=== PATIENT | female | born 1970 | race Caucasian/White ===

== ENCOUNTER → 2017-02-21 | Outpatient (REF) | payer OTHER ==
[2017-02-21 19:28] LABS: LUTEINIZING HORMONE 3.3 mIU/mL; PROGESTERONE 1.3 NG/ML
[2017-02-21 19:29] LABS: ESTRADIOL 49.3 PG/ML; FOLLICLE STIMULATING HORMONE 6.3 mIU/mL
[2017-02-26 00:07] LABS: ESTRONE SERUM 61 pg/mL (.)
== END ==
LOC: M LAB REF 17:03
PROVIDERS: ATTEND Obstetrics & Gynecology
DX: N92.0 Excessive and frequent menstruation with regular cycle (principal)

== ENCOUNTER → 2017-03-27 | Outpatient (CLI) | payer BC, OTHER ==
[~2017-03-27] MED LIST: LEVO100T5 PO; MELO15TA4 PO; MOTR200T44 PO; MULT1TAB10 PO; OMEP20CA3; PERC5TAB12 PO; VENTAER INH; ZYRT10TA2 PO
--- NOTE | 2017-03-28 18:59 | ECGEPIP ---
Stationary ECG Study [facility] Test Date: 2017-03-27 Pat Name: ANISA DEJESUS Department: Room: - Gender: F Furniture Salesperson: CLAUDIO : 1970 Requested By: Maninder Marquez Order Number: [id number] Reading MD: Cristopher Willams Measurements Intervals [place] Rate: 60 P: 41 VA: 113 QRS: 61 QRSD: 99 T: 29 QT: 423 QTc: 424 Interpretive Statements SINUS RHYTHM WITH SHORT VA INTERVAL Nonspecific anterior ST changes, correlate clinically No previous tracing on record Electronically Signed On 03-28-2017 18:59:00 EST by Cristopher Willams
== END ==
LOC: M EKG 16:27
PROVIDERS: ATTEND Anesthesiology
DX: Z01.818 Encounter for other preprocedural examination (principal); E03.9 Hypothyroidism, unspecified; R94.31 Abnormal electrocardiogram [ECG] [EKG]

== ENCOUNTER 2017-04-03 06:26 | Day surgery (SDC) | payer BC, OTHER ==
[2017-04-03] MEDS ORDERED: LR 1,000 ML IV (06:45)
[2017-04-03] MEDS ORDERED: LIDOCAINE 2% INJ 100 MG/5 ML SDV (FOR ANES.) As Ordered (07:08)
[2017-04-03] MEDS ORDERED: PROPOFOL 200 MG/20 ML VIAL As Ordered (07:08)
[2017-04-03] MEDS ORDERED: ONDANSETRON 4MG/2ML VIAL (J2405) As Ordered ×2 (07:08→10:35)
[2017-04-03] MEDS ORDERED: ROCURONIUM BROMIDE 50 MG/5 ML VIAL As Ordered ×2 (07:08→09:13)
[2017-04-03] MEDS ORDERED: fentaNYL 100 MCG/2 ML INJECTION (J3010) As Ordered (07:08)
[2017-04-03] MEDS ORDERED: NEOSTIGMINE 10 MG/10 ML VIAL (J2710) As Ordered (07:08)
[2017-04-03] MEDS ORDERED: GLYCOPYRROLATE INJ 0.2 MG/ML 2 ML VIAL As Ordered (07:08)
[2017-04-03] MEDS ORDERED: dexameTHASONE 4 MG/ML 1ML VIAL (J1100) As Ordered (07:08)
[2017-04-03] MEDS ORDERED: KETOROLAC 60 MG/2 ML VIAL (J1885) As Ordered (07:09)
[2017-04-03] MEDS ORDERED: MIDAZOLAM INJ 2 MG/2 ML VIAL (J2250) As Ordered (07:09)
[2017-04-03] MEDS ORDERED: HYDROmorphone HCL 2 MG/ML 1ML VIAL (J1170) As Ordered (07:09)
[2017-04-03 07:15] LABS: MEAN CORPUSCULAR HEMOGLOBIN 26.7 pg (27.0-33.0); MEAN CORPUSCULAR HGB CONC 32.6 g/dl (32.0-36.5); MEAN CORPUSCULAR VOLUME 81.8 fl (80.0-96.0); PLATELET COUNT, AUTOMATED 313 10^3/uL (150-450); RED CELL DISTRIBUTION WIDTH 14.2 % (11.5-14.5); WHITE BLOOD COUNT 9.6 10^3/uL (4.0-10.0)
[2017-04-03] MEDS ORDERED: SCOPOLAMINE 1MG TRANSDERMAL PATCH As Ordered (07:28)
[2017-04-03 07:35] LABS: ANION GAP 7 MEQ/L (8-16); BLOOD UREA NITROGEN 12 MG/DL (7-18); CALCIUM LEVEL 8.8 MG/DL (8.5-10.1); CARBON DIOXIDE LEVEL 27 MEQ/L (21-32); CHLORIDE LEVEL 109 MEQ/L (98-107); CREATININE FOR GFR 0.95 MG/DL (0.55-1.02); GLOMERULAR FILTRATION RATE > 60.0 (>58); GLUCOSE, FASTING 89 MG/DL (70-105); POTASSIUM SERUM 3.9 MEQ/L (3.5-5.1); SODIUM LEVEL 143 MEQ/L (136-145)
[2017-04-03] MEDS: ACETAMINOPHEN 650 MG SUPP PR (08:10)
[2017-04-03] MEDS: ACETAMINOPHEN 650 MG SUPP As Ordered (09:13)
[2017-04-03] MEDS: FLUORESCEIN 10% (100MG/ML) 5 ML VIAL As Ordered (09:43)
[2017-04-03] MEDS: LIDOCAINE W/EPINEPHRINE 1% 20ML VIAL As Ordered (10:15)
[2017-04-03] MEDS: LR 1,000 ML IV ×3 (10:31→16:23)
[2017-04-03] MEDS: ONDANSETRON 4MG/2ML VIAL (J2405) IV (10:40)
[2017-04-03] MEDS ORDERED: PERCOCET 5MG/325MG TAB PO (11:00)
[2017-04-03] MEDS ORDERED: IBUPROFEN 800 MG TAB PO (11:00)
[2017-04-03] MEDS ORDERED: fentaNYL 100 MCG/2 ML INJECTION (J3010) IV (11:00)
[2017-04-03] MEDS ORDERED: METOCLOPRAMIDE INJ 10MG/2ML VIAL (J2765) As Ordered (11:02)
[2017-04-03] MEDS: METOCLOPRAMIDE INJ 10MG/2ML VIAL (J2765) IV (11:05)
[2017-04-03] MEDS ORDERED: ePHEDrine SULFATE 25 MG/5 ML(5MG/ML) SYRINGE As Ordered (11:33)
[2017-04-03] MEDS ORDERED: PHENYLephrine HCL 500 MCG/5 ML (100MCG/ML) SYRINGE (J2370) As Ordered (11:33)
[2017-04-03] MEDS: SIMETHICONE 80 MG CHEW TAB PO ×3 (13:07→23:14)
[2017-04-03] MEDS: SCOPOLAMINE 1MG TRANSDERMAL PATCH TOP (14:30)
[2017-04-03] MEDS: PERCOCET 5MG/325MG TAB PO ×2 (14:55→20:29)
[2017-04-03] MEDS: IBUPROFEN 800 MG TAB PO ×2 (16:17→23:14)
[2017-04-04] MEDS: IBUPROFEN 800 MG TAB PO ×2 (03:59→09:28)
[2017-04-04] MEDS: PERCOCET 5MG/325MG TAB PO ×2 (04:01→11:05)
[2017-04-04] MEDS: SIMETHICONE 80 MG CHEW TAB PO (06:48)
== END 2017-04-04 11:05 | disposition home or self-care (01) ==
LOC: M SDC 06:26 → M OBS 11:40
DX: D25.1 Intramural leiomyoma of uterus (principal); N94.10 Unspecified dyspareunia; N92.0 Excessive and frequent menstruation with regular cycle; E03.9 Hypothyroidism, unspecified; K44.9 Diaphragmatic hernia without obstruction or gangrene; K21.9 Gastro-esophageal reflux disease without esophagitis; M17.0 Bilateral primary osteoarthritis of knee; F41.9 Anxiety disorder, unspecified; J45.909 Unspecified asthma, uncomplicated; Z87.891 Personal history of nicotine dependence; Z91.018 Allergy to other foods; Z79.899 Other long term (current) drug therapy
CPT/HCPCS: 58571

== ENCOUNTER → 2019-10-16 | Outpatient (CLI) | payer BC, OTHER ==
[~2019-10-16] MED LIST changes: +MELO15TA28 PO; -MELO15TA4 PO; +OMEP1CAP73; -OMEP20CA3; +ZYRT10CA5 PO; -ZYRT10TA2 PO
--- NOTE | 2019-10-17 14:40 | REP ---
HAND: REASON: Pain after trauma to the 3rd metacarpal. PRIORS: None. FINDINGS: The joint spaces are symmetric and relatively well maintained. There is no evidence of acute fracture or destructive osseous lesion. IMPRESSION: Negative hand. Electronically Signed by Modesto Ashford DO 10/18/2019 08:26 A
== END ==
LOC: M WUC 15:36
PROVIDERS: ATTEND Physician Assistant
DX: M79.641 Pain in right hand (principal)

== ENCOUNTER → 2020-09-29 | Outpatient (CLI) | payer BC, OTHER ==
[2020-09-29 08:04] LABS: BASO # 0.1 10^3/uL (0.0-0.2); BASO % 0.7 % (0.0-1.0); EOS # 0.1 10^3/uL (0.0-0.5); EOS % 1.3 % (0.0-3.0); HEMATOCRIT 41.1 % (36.0-47.0); HEMOGLOBIN 13.4 g/dl (12.0-15.5); LYMPH % 24.5 % (24.0-44.0); MEAN CORPUSCULAR HGB CONC 32.6 g/dl (32.0-36.5); MONO # 0.7 10^3/uL (0.0-0.8); MONO % 8.5 % (2.0-8.0); NEUTROPHILS # 5.4 10^3/uL (1.5-8.5); NEUTROPHILS % 64.8 % (36.0-66.0); PLATELET COUNT, AUTOMATED 331 10^3/uL (150-450); RED BLOOD COUNT 4.78 10^6/uL (4.00-5.40); WHITE BLOOD COUNT 8.3 10^3/uL (4.0-10.0)
[2020-09-29 08:26] LABS: ALBUMIN 3.9 GM/DL (3.2-5.2); ALT/SGPT 20 U/L (12-78); BILIRUBIN,TOTAL 0.6 MG/DL (0.2-1.0); BLOOD UREA NITROGEN 13 MG/DL (7-18); CALCIUM LEVEL 9.3 MG/DL (8.5-10.1); CARBON DIOXIDE LEVEL 27 MEQ/L (21-32); CHLORIDE LEVEL 109 MEQ/L (98-107); CHOLESTEROL LEVEL 224 MG/DL (<200); CREATININE FOR GFR 0.81 MG/DL (0.55-1.30); GLOMERULAR FILTRATION RATE > 60.0 (>51); GLUCOSE, FASTING 105 MG/DL (70-100); HDL CHOLESTEROL 56 MG/DL (>40); LDL CHOLESTEROL 152 MG/DL (<100); NON-HDL-C 168 MG/DL; POTASSIUM SERUM 4.2 MEQ/L (3.5-5.1); SODIUM LEVEL 142 MEQ/L (136-145); TOTAL PROTEIN 7.1 GM/DL (6.4-8.2); TRIGLYCERIDES LEVEL 80 MG/DL (<150)
[2020-09-29 09:53] LABS: FOLLICLE STIMULATING HORMONE 44.6 mIU/mL; LUTEINIZING HORMONE 34.4 mIU/mL
== END ==
LOC: M LAB 07:21
PROVIDERS: ATTEND Family Medicine
DX: E03.9 Hypothyroidism, unspecified (principal)